=== PATIENT | male | born 1950 | race Caucasian/White ===

== ENCOUNTER → 2016-04-08 | Outpatient (CLI) | payer OTHER, BC ==
[~2016-04-08] MED LIST: ACET-1138 PO; ASPI81TA28 PO; GLUC1TAB8 PO; HYDR25TA4 PO; MULT-190 PO; MULT-506 PO; NVLNI SQ; ONDA8TAB6 PO; PRAV20TA PO; RXC5 PO; SNK PO; TEMA15CA4 PO; TPRSR50 PO; VALS320T PO; VTMD1000 PO
[2016-04-08 17:17] LABS: BLOOD UREA NITROGEN 29 mg/dl (7-18); BUN/CREATININE RATIO 20.6 (10-20); CALCIUM 9.7 mg/dl (8.5-10.1); CARBON DIOXIDE 28 mmol/L (21-32); CHLORIDE 103 mmol/L (98-107); CHOLESTEROL 142 mg/dl (0-200); GLUCOSE 101 mg/dl (70-99); POTASSIUM 4.1 mmol/L (3.5-5.1); SODIUM 142 mmol/L (136-145)
[2016-04-08 17:19] LABS: CHOLESTEROL/HDL RATIO 3.3; HDL CHOLESTEROL 43 mg/dl; LDL CHOLESTEROL CALCULATED 63 mg/dl; TRIGLYCERIDES 182 mg/dl (0-150); VERY LOW DENSITY LIPOPROT CALC 36 mg/dl
[2016-04-09 06:57] LABS: ESTIMATED AVERAGE GLUCOSE 126 mg/dl; HA1C FLAG Normal (Normal)
== END | disposition home or self-care (01) ==
LOC: C.LABBC 14:27
PROVIDERS: ATTEND Internal Medicine Geriatric Medicine
DX: Z11.59 Encounter for screening for other viral diseases (principal); E78.5 Hyperlipidemia, unspecified; E11.9 Type 2 diabetes mellitus without complications; I12.9 Hypertensive chronic kidney disease with stage 1 through stage 4 chronic kidney disease, or unspecified chronic kidney disease; N18.3 Chronic kidney disease, stage 3 (moderate)

== ENCOUNTER → 2016-10-14 | Outpatient (CLI) | payer OTHER, BC ==
[~2016-10-14] MED LIST changes: -ONDA8TAB6 PO
[2016-10-14 11:08] LABS: BASO % 0.5 %; BASO ABS # 0.03 K/uL (0-0.2); COMPLETE YES; EOS % 9.8 %; HEMATOCRIT 42.2 % (42-52); IG% 0.2 %; LYMPH % 22.8 %; LYMPH ABS # 1.28 K/uL (1.2-3.4); MEAN CELL VOLUME 90.8 fL (80-100); MEAN CORPUSCULAR HEMOGLOBIN 30.8 pg (25-34); MEAN CORPUSCULAR HGB CONC 33.9 g/dl (32-36); MEAN PLATELET VOLUME 10.5 fL (7.4-10.4); MONO % 14.1 %; NEUT % 52.6 %; PLATELET COUNT 182 K/uL (130-400); RED BLOOD COUNT 4.65 M/uL (4.7-6.1); WHITE BLOOD COUNT 5.61 K/uL (4.8-10.8)
[2016-10-14 11:21] LABS: ESTIMATED AVERAGE GLUCOSE 134 mg/dl; HA1C FLAG Normal (Normal)
[2016-10-14 11:24] LABS: BLOOD UREA NITROGEN 28 mg/dl (7-18); BUN/CREATININE RATIO 15.3 (10-20); CALCIUM 9.5 mg/dl (8.5-10.1); CARBON DIOXIDE 31 mmol/L (21-32); CHLORIDE 107 mmol/L (98-107); GLUCOSE 125 mg/dl (70-99); POTASSIUM 4.1 mmol/L (3.5-5.1); SODIUM 141 mmol/L (136-145)
[2016-10-14 11:26] LABS: URINE PROTIEN/CREAT RATIO 0.1 (0-0.2)
[2016-10-14 11:35] LABS: THYROID STIMULATING HORMONE 0.546 uIu/ml (0.300-4.500)
== END | disposition home or self-care (01) ==
LOC: C.LABBC 07:33
PROVIDERS: ATTEND Internal Medicine Geriatric Medicine
DX: E11.22 Type 2 diabetes mellitus with diabetic chronic kidney disease (principal); I12.9 Hypertensive chronic kidney disease with stage 1 through stage 4 chronic kidney disease, or unspecified chronic kidney disease; N18.3 Chronic kidney disease, stage 3 (moderate); M19.90 Unspecified osteoarthritis, unspecified site; G47.33 Obstructive sleep apnea (adult) (pediatric); E78.5 Hyperlipidemia, unspecified

== ENCOUNTER → 2017-01-28 | Outpatient (CLI) | payer OTHER, BC ==
[2017-01-28 17:47] LABS: BLOOD UREA NITROGEN 27 mg/dl (7-18); BUN/CREATININE RATIO 16.3 (10-20); CALCIUM 9.4 mg/dl (8.5-10.1); CARBON DIOXIDE 29 mmol/L (21-32); CHLORIDE 103 mmol/L (98-107); CREATININE 1.64 mg/dl (0.60-1.40); GLUCOSE 110 mg/dl (70-99); POTASSIUM 3.9 mmol/L (3.5-5.1); SODIUM 140 mmol/L (136-145)
[2017-01-29 05:52] LABS: ESTIMATED AVERAGE GLUCOSE 131 mg/dl; HA1C FLAG Normal (Normal)
== END | disposition home or self-care (01) ==
LOC: C.LABBC 14:25
PROVIDERS: ATTEND Internal Medicine Geriatric Medicine
DX: E11.29 Type 2 diabetes mellitus with other diabetic kidney complication (principal)

== ENCOUNTER → 2017-07-01 | Outpatient (CLI) | payer OTHER, BC ==
[2017-07-01 17:22] LABS: BASO % 0.6 %; BASO ABS # 0.04 K/uL (0-0.2); EOS ABS # 0.45 K/uL (0-0.5); HEMATOCRIT 42.9 % (42-52); IG# 0.01 K/uL (0.00-0.02); LYMPH % 22.3 %; LYMPH ABS # 1.44 K/uL (1.2-3.4); MEAN CELL VOLUME 90.1 fL (80-100); MEAN CORPUSCULAR HEMOGLOBIN 31.5 pg (25-34); MEAN PLATELET VOLUME 11.2 fL (7.4-10.4); MONO ABS # 1.16 K/uL (0.11-0.59); NEUT % 51.9 %; NEUT ABS # 3.36 K/uL (1.4-6.5); PLATELET COUNT 204 K/uL (130-400); RED CELL DISTRIBUTION WIDTH CV 13.2 % (11.5-14.5); WHITE BLOOD COUNT 6.46 K/uL (4.8-10.8)
[2017-07-01 17:38] LABS: ALBUMIN 4.1 gm/dl (3.4-5.0); ALT/SGPT 54 U/L (12-78); AST/SGOT 31 U/L (15-37); BLOOD UREA NITROGEN 26 mg/dl (7-18); CALCIUM 9.5 mg/dl (8.5-10.1); CARBON DIOXIDE 29 mmol/L (21-32); CHOLESTEROL 113 mg/dl (0-200); CREATININE 1.77 mg/dl (0.60-1.40); GLUCOSE 91 mg/dl (70-99); POTASSIUM 3.7 mmol/L (3.5-5.1); SODIUM 139 mmol/L (136-145)
[2017-07-01 17:42] LABS: ALKALINE PHOSPHATASE 74 U/L (45-117); LDL CHOLESTEROL CALCULATED 40 mg/dl; TOTAL PROTEIN 7.1 gm/dl (6.4-8.2)
[2017-07-02 06:30] LABS: HEMOGLOBIN A1C 6.8 % (4.5-5.6)
== END | disposition home or self-care (01) ==
LOC: C.LABBC 13:19
PROVIDERS: ATTEND Internal Medicine Geriatric Medicine
DX: I12.9 Hypertensive chronic kidney disease with stage 1 through stage 4 chronic kidney disease, or unspecified chronic kidney disease (principal); E11.29 Type 2 diabetes mellitus with other diabetic kidney complication; N18.3 Chronic kidney disease, stage 3 (moderate); E55.9 Vitamin D deficiency, unspecified; E78.5 Hyperlipidemia, unspecified

== ENCOUNTER → 2017-10-27 | Outpatient (CLI) | payer OTHER, BC ==
[2017-10-27 17:27] LABS: BLOOD UREA NITROGEN 26 mg/dl (7-18); CARBON DIOXIDE 26 mmol/L (21-32); CREATININE 1.88 mg/dl (0.60-1.40); GLUCOSE 147 mg/dl (70-99); POTASSIUM 3.7 mmol/L (3.5-5.1); SODIUM 141 mmol/L (136-145)
[2017-10-28 06:13] LABS: HEMOGLOBIN A1C 7.2 % (4.5-5.6)
== END | disposition home or self-care (01) ==
LOC: C.LABBC 15:22
PROVIDERS: ATTEND Physician Assistant Medical
DX: E11.29 Type 2 diabetes mellitus with other diabetic kidney complication (principal); N18.3 Chronic kidney disease, stage 3 (moderate)